=== PATIENT | female | born 1990 | race Hispanic/Latino ===

== ENCOUNTER 2020-01-19 20:48 | Emergency (ER) | payer OTHER ==
[2020-01-19] MEDS ORDERED: PREDNISONE 20 MG TABLET ONE (21:03)
[2020-01-19] MEDS ORDERED: ALBUTEROL SULFATE 0.083% 2.5 MG/3 ML INH IH ONE (21:08)
== END 2020-01-19 22:38 | disposition home or self-care (01) ==
LOC: EDH 20:48
DX: L50.0 Allergic urticaria (principal); S90.869A Insect bite (nonvenomous), unspecified foot, initial encounter; Z98.890 Other specified postprocedural states; W57.XXXA Bitten or stung by nonvenomous insect and other nonvenomous arthropods, initial encounter; Y93.89 Activity, other specified; Y92.89 Other specified places as the place of occurrence of the external cause; Y99.8 Other external cause status
CPT/HCPCS: 94640; 96374